=== PATIENT | female | born 1935 | race Caucasian/White ===

== ENCOUNTER 2017-04-02 00:43 | Inpatient (IN) | payer OTHER ==
[~2017-04-02] VITALS: Ht 139.7 cm; Wt 43.5 kg
[~2017-04-02 00:43] MED LIST: BACTRIM1 TAB; CEFUROXIME AXE500 MG PO; DONLUD PO; IBUPROFEN400 MG PO; LAC PO; LEVOFLOXACIN500 M1 PO; PRILOSEC20 MG PO
[2017-04-02 02:00] LABS: BASOPHIL % 0.6 % (0-2); PLATELET COUNT 196 x10^3mcL (130-400)
[2017-04-02 02:04] LABS: RED CELL DISTRIBUTION WIDTH 14.6 % (11.5-14.5)
[2017-04-02 02:11] LABS: ALKALINE PHOSPHATASE 95 U/L (46-116); ALT/SGPT 14 U/L (14-59); AMYLASE 45 U/L (25-115); AST/SGOT 17 U/L (15-37); BILIRUBIN TOTAL 0.36 mg/dL (0.20-1.00); CALCIUM 8.9 mg/dL (8.5-10.1); CARBON DIOXIDE 11.7 mmol/L (21-32); CHLORIDE SERUM 113 mmol/L (98-107); CREATININE SERUM 1.1 mg/dL (0.6-1.0); GLUCOSE SERUM 137 mg/dL (74-106); LIPASE 143 IU/L (73-393); POTASSIUM SERUM 3.2 mmol/L (3.5-5.1); SODIUM SERUM 139 mmol/L (136-145); TOTAL PROTEIN, SERUM 8.2 g/dL (6.4-8.2)
[2017-04-02 02:14] LABS: ALBUMIN 3.2 g/dL (3.4-5.0)
[2017-04-02 04:38] LABS: MAGNESIUM 1.7 mg/dL (1.8-2.4); PHOSPHOROUS 2.8 mg/dL (2.5-4.9)
[2017-04-02 04:46] LABS: FREE T4 1.13 ng/dL (0.76-1.46); FREE THYROXINE INDEX 1.8 ug/dL (1.4-4.5); T3 TOTAL 0.6 ng/mL; T4(THYROXINE) 5.4 ug/dL (4.7-13.3)
[2017-04-02 04:49] LABS: CHOLESTEROL/HDL RATIO 2.1
[2017-04-02 06:46] VITALS: BP 105/52
[2017-04-02 09:16] VITALS: BP 103/47
[2017-04-02 12:11] VITALS: BP 109/55
[2017-04-02 12:43] LABS: CALCIUM 8.8 mg/dL (8.5-10.1); CARBON DIOXIDE 11.6 mmol/L (21-32); CHLORIDE SERUM 119 mmol/L (98-107); GLUCOSE SERUM 116 mg/dL (74-106); POTASSIUM SERUM 3.9 mmol/L (3.5-5.1); SODIUM SERUM 144 mmol/L (136-145)
[2017-04-02 16:16] VITALS: BP 119/43
[2017-04-02 18:16] LABS: microscopic required? YES; urine erythrocyte 3+ (NEGATIVE)
[2017-04-02 18:26] LABS: AMPHETAMINE QUAL UR NONE DETECTED (NEG <=1000)
[2017-04-02 21:43] VITALS: BP 118/48
[2017-04-03 05:29] VITALS: BP 118/48
[2017-04-03 06:14] VITALS: BP 109/48
[2017-04-03 07:16] LABS: CALCIUM 8.4 mg/dL (8.5-10.1); CHLORIDE SERUM 119 mmol/L (98-107); GLUCOSE SERUM 124 mg/dL (74-106); MAGNESIUM 2.1 mg/dL (1.8-2.4); PHOSPHOROUS 2.8 mg/dL (2.5-4.9); POTASSIUM SERUM 3.5 mmol/L (3.5-5.1); SODIUM SERUM 141 mmol/L (136-145)
[2017-04-03 07:34] LABS: CARBON DIOXIDE 8.6 mmol/L (21-32)
[2017-04-03 10:37] VITALS: BP 109/54
[2017-04-03 11:09] LABS: PLATELET COUNT 181 x10^3mcL (130-400)
[2017-04-03 11:35] LABS: ATYPICAL LYMPH 0 %; BAND NEUTROPHIL 8 % (0-10); BASOPHIL 2 % (0-2); MONOCYTE 4 % (0-7); SEGMENTED NEUTROPHILS 70 % (37-75)
[2017-04-03 11:36] LABS: PLATELET MORPHOLOGY PLATELETS DECREASED; rbc morphology (normal/abnorm) ABNORMAL (NORMAL)
[2017-04-03 14:16] VITALS: BP 120/87
[2017-04-03 17:59] VITALS: BP 125/52
[2017-04-03 21:01] VITALS: BP 116/46
[2017-04-04 06:45] VITALS: BP 98/56
[2017-04-04 07:03] LABS: BASOPHIL % 0.3 % (0-2); PLATELET COUNT 191 x10^3mcL (130-400)
[2017-04-04 07:06] LABS: CALCIUM 8.3 mg/dL (8.5-10.1); CARBON DIOXIDE 10.5 mmol/L (21-32); CHLORIDE SERUM 119 mmol/L (98-107); CREATININE SERUM 0.9 mg/dL (0.6-1.0); GLUCOSE SERUM 103 mg/dL (74-106); MAGNESIUM 1.6 mg/dL (1.8-2.4); PHOSPHOROUS 2.8 mg/dL (2.5-4.9); POTASSIUM SERUM 3.4 mmol/L (3.5-5.1); SODIUM SERUM 144 mmol/L (136-145)
[2017-04-04 07:07] LABS: ALBUMIN 2.6 g/dL (3.4-5.0)
[2017-04-04 07:09] LABS: RED CELL DISTRIBUTION WIDTH 15.8 % (11.5-14.5)
[2017-04-04 10:00] VITALS: BP 116/54
[2017-04-04] MEDS ORDERED: FLA500 PO (15:55)
[2017-04-04] MEDS ORDERED: LAC PO (15:56)
[2017-04-04] MEDS ORDERED: LEVAQUIN750 MG PO (15:58)
[2017-04-04 16:07] VITALS: BP 116/54
== END 2017-04-04 17:40 | disposition home health service (06) | DRG 371 ==
LOC: ED 00:43 → DU 03:52 → MU 03:52 → DU 04:36 → MU 04-03 17:43
PROVIDERS: Emergency Medicine; ADMIT Family Medicine
DX: A04.72 Enterocolitis due to Clostridium difficile, not specified as recurrent (principal); N17.0 Acute kidney failure with tubular necrosis; N39.0 Urinary tract infection, site not specified; E44.1 Mild protein-calorie malnutrition; E87.2 Acidosis; N13.1 Hydronephrosis with ureteral stricture, not elsewhere classified; I42.9 Cardiomyopathy, unspecified; N13.731 Vesicoureteral-reflux with reflux nephropathy with hydroureter, unilateral; I35.0 Nonrheumatic aortic (valve) stenosis; E86.0 Dehydration; E87.6 Hypokalemia; D63.8 Anemia in other chronic diseases classified elsewhere; E83.42 Hypomagnesemia; Z68.22 Body mass index [BMI] 22.0-22.9, adult; Z93.6 Other artificial openings of urinary tract status; Z93.3 Colostomy status; Z85.030 Personal history of malignant carcinoid tumor of large intestine; Z85.820 Personal history of malignant melanoma of skin; Z85.41 Personal history of malignant neoplasm of cervix uteri; Z92.3 Personal history of irradiation; Z96.659 Presence of unspecified artificial knee joint
CPT/HCPCS: 82962; 83880; 84439; 87046; 87046-59; 87804; 94150; 97110-GP; 97116-GP; 97530-GP; J1956; J2765; J3475; J3490; J7030; J7620; Q0092